=== PATIENT | female | born 1945 | race Caucasian/White ===

== ENCOUNTER 2017-02-21 11:57 | Emergency (ER) | payer MEDICARE ==
[2017-02-21 12:31] VITALS: BP 157/90
--- NOTE | 2017-02-21 14:25 | UC ---
Sabas Rosa Angela, scribed for Colten Zamora MD on 02/21/17 at 1318 . Skin Complaint HPI - HPI Summary HPI Summary: This is a 71 y/o right-handed female presenting to [facility] c/o rash on her left arm and armpit since this morning. Pt reports a burning sensation but denies pruritus. She states she was gardening yesterday and backed up on a shrub. Pt notes her rash is only on her left arm. Pt denies any tick or insect bites, fever, chills, sore throat, rhinorrhea. - History of Current Complaint Chief Complaint: [facility] Time Seen by Provider: 02/21/17 13:03 Stated Complaint: RASH Hx Obtained From: Patient Onset/Duration: Sudden Onset Skin Exposure Onset/Duration: Hours Ago Location: Discrete - On posterior left shoulder. Character: Redness, Raised Aggravating: Nothing Alleviating: Nothing Associated Signs & Symptoms: Positive: Rash. Negative: Nausea, Vomiting, Fever , Chills, Cough, Throat Tightening, Drainage, Bruising, Tenderness, Red Streaks - Allergy/Home Medications Allergies/Adverse Reactions: Allergies Allergy/AdvReac Type Severity Reaction Status Date / Time No Known Allergies Allergy Verified 02/21/17 12:26 Review of Systems Constitutional: Negative Skin: Rash - On left arm. ENT: Negative Respiratory: Negative Cardiovascular: Negative Gastrointestinal: Negative Motor: Negative Musculoskeletal: Negative Neurological: Negative All Other Systems Reviewed And Are Negative: Yes PMH/Surg Hx/FS Hx/Imm Hx - Surgical History Surgical History: None - Family History Known Family History: Positive: Other - Hyperlipidemia - Social History Alcohol Use: Daily Alcohol Amount: wine Substance Use Type: None Smoking Status (MU): Former Smoker Type: Cigarettes Amount Used/How Often: 1/2 PPD Length of Time of Smoking/Using Tobacco: 10 years When Did the Patient Quit Smoking/Using Tobacco: 40 years ago Physical Exam Triage Information Reviewed: Yes Vital Signs: Initial Vital Signs Temp 98.9 F 02/21/17 12:27 Pulse 73 02/21/17 12:27 Resp 16 02/21/17 12:27 BP 157/90 02/21/17 12:27 Pulse Ox 99 02/21/17 12:27 Vital Signs Reviewed: Yes - Additional Comments The patient is well-nourished in no acute distress and in no acute pain. The skin is warm and dry and skin color reflects adequate perfusion. On left upper extremity there are vesicular red rash in clumps on posterior left shoulder and deltoid, consistent with poison sofía. There are no red streaks. Neck is supple with full range of motion and non-tender. Musculoskeletal: There is no back pain noted. Extremities are non-tender with full range of motion. There is good capillary refill. Pulses distally are intact. Neurological: Patient is alert and oriented to person, place and time. The patient has symmetrical motor strength in all four extremities. Psychiatric: The patient has an appropriate affect and does not exhibit any anxiety or depression. Course/Dx - Course Course Of Treatment: There are vesicular red rashes in clumps likely consistent with poison sofía. She does not appear infected, doubt shingles. Pt will be discharged with prednisone. - Differential Diagnoses - Skin Complaint Differential Diagnoses: Contact Dermatitis, Local Allergic Reaction, Poison Sofía , Varicella Zoster - Diagnoses Provider Diagnoses: Poison Sofía. Elevated BP Discharge - Discharge Plan Condition: Stable Disposition: HOME Prescriptions: predniSONE TAB* [Deltasone TAB*] 10 mg PO DAILY #41 tab Patient Education Materials: Poison Sofía (ED) Referrals: Flor Quintero MD [Primary Care Provider] - Additional Instructions: Your blood pressure was elevated at this visit. Please follow up with your primary care provider for a blood pressure reading. Also, please follow up with your family doctor or raker buffing wheel to assure your rashes are improving. The documentation as recorded by the Sabas colon Angela accurately reflects the service I personally performed and the decisions made by , Colten Zamora MD.
== END 2017-02-21 13:52 | disposition home or self-care (01) ==
LOC: UCEAST 11:57
DX: L23.7 Allergic contact dermatitis due to plants, except food (principal); R03.0 Elevated blood-pressure reading, without diagnosis of hypertension; Z87.891 Personal history of nicotine dependence
CPT/HCPCS: 99212; G0463